=== PATIENT | male | born 1995 | race Caucasian/White ===

== ENCOUNTER 2022-12-03 23:54 | Emergency (ER) | payer OTHER ==
[2022-12-04 00:04] VITALS: BP 128/76
== END 2022-12-04 05:12 | disposition home or self-care (01) ==
LOC: ER 12-04 00:29
DX: T40.711A Poisoning by cannabis, accidental (unintentional), initial encounter (principal); Y92.9 Unspecified place or not applicable
CPT/HCPCS: 99283